=== PATIENT | female | born 1980 | race Caucasian/White ===

== ENCOUNTER 2017-07-23 15:27 | Emergency (ER) | payer MEDICARE, OTHER ==
[~2017-07-23] VITALS: Ht 157.5 cm; Wt 88.5 kg
[~2017-07-23 15:27] MED LIST: LISI5TAB18 PO
[2017-07-23 15:40] VITALS: BP 117/54
--- NOTE | 2017-07-23 15:46 | NUR ---
PT TO RM 8. GAVE REPORT TO MARTHA CARDOZO.
--- NOTE | 2017-07-23 15:53 | NUR ---
PT. CAME INTO THE ED W C/O LARSON X 2 WEEKS THAT HAS BEEN GETTING WORSE. PT. IS AAOX4, PT. DENIES ANY CHEST PAIN OR SOB. PT. STATES " I HAVE HAD THIS HEADACHE FOR 2 WEEKS AND ITS NON STOP I HAVE TAKEN MANY OTC MEDICATIONS AND IT DOESNT GET BETTER ITS GETTING WORSE". PT.DENIES FALL, PT. COMPLAINS OF N/V/ AND DIAHRRHEA X 2 DAYS AGO. PT. HAS EQUAL ROUND AND REACTIVE PUPILS TO LIGHT BILATERALLY 3MM BRISK , ABLE TO FOLLOW COMMANDS AND BILATERAL 3+ HAND STRENGTH. PT STATES " I HAVE NEVER HAD A LARSON LIKE THIS. ER MD NOTIFIED. PROVIDED URINE SAMPLE. WILL CONTINUE TO MONITOR.
--- NOTE | 2017-07-23 15:56 | NUR ---
Bernard figueroa in ED - 07/23/17 at 1601 by MARK PT TO RM 8. GAVE REPORT TO MARTHA BURROUGHS
[2017-07-23] MEDS ORDERED: NACL 0.9% 1,000 ML IV ONE (16:26)
[2017-07-23] MEDS ORDERED: PROCHLORPERAZINE 10 MG/2 ML VIAL IVP ONE (16:30)
[2017-07-23] MEDS ORDERED: diphenhydrAMINE 50 MG/ML VIAL IVP ONE (16:30)
[2017-07-23] MEDS ORDERED: KETOROLAC 30 MG/ML VIAL IVP ONE (17:00)
--- NOTE | 2017-07-23 17:00 | NUR ---
PT. RESTING COMFORTABLY IN BED, RR EVEN AND UNLABORED, BED IN LOWEST POSITION, COMPALINS OF 8/10 PAIN , ER MD NOTIFIED . WILL CONTINUE TO MONITOR.
[2017-07-23 17:30] VITALS: BP 120/57
--- NOTE | 2017-07-23 17:30 | NUR ---
Patient discharged with v/s stable. Written and verbal after care instructions given and explained. Patient alert, oriented and verbalized understanding of instructions. Ambulatory with steady gait. All questions addressed prior to discharge. ID band removed. Patient advised to follow up with PMD. Rx of CIPRO, MOTRIN, AND NORCO 5-325 given. Patient educated on indication of medication including possible reaction and side effects. Opportunity to ask questions provided and answered.
== END 2017-07-23 17:30 | disposition home or self-care (01) ==
LOC: MED 15:27
DX: N39.0 Urinary tract infection, site not specified (principal); R51 Headache; J45.909 Unspecified asthma, uncomplicated; I50.9 Heart failure, unspecified; G43.909 Migraine, unspecified, not intractable, without status migrainosus; Z79.899 Other long term (current) drug therapy
CPT/HCPCS: 81002; 81025; 96361; 96374; 96375; 99284; J0780; J1200; J1885; J7030

== ENCOUNTER 2017-07-30 11:25 | Emergency (ER) | payer OTHER ==
[~2017-07-30] VITALS: Ht 157.5 cm; Wt 90.3 kg
[2017-07-30 11:35] VITALS: BP 121/78
[2017-07-30] MEDS ORDERED: ALBU0.0912 IH (11:42)
[2017-07-30] MEDS ORDERED: MORPHINE SULFATE 4 MG/ML SYR IM ONE (12:20)
[2017-07-30] MEDS ORDERED: ONDANSETRON 4 MG ODT PO ONE (12:20)
[2017-07-30] MEDS ORDERED: METHOCARBAMOL 500 MG TAB PO ONE (15:10)
[2017-07-30] MEDS ORDERED: KETOROLAC 60 MG/2 ML VIAL IM ONE (15:10)
[2017-07-30 16:07] VITALS: BP 102/60
== END 2017-07-30 16:07 | disposition home or self-care (01) ==
LOC: MED 11:25
DX: S09.90XA Unspecified injury of head, initial encounter (principal); M54.2 Cervicalgia; M54.6 Pain in thoracic spine; J45.909 Unspecified asthma, uncomplicated; F12.10 Cannabis abuse, uncomplicated; V43.52XA Car driver injured in collision with other type car in traffic accident, initial encounter; Y93.89 Activity, other specified; Y99.8 Other external cause status; Y92.410 Unspecified street and highway as the place of occurrence of the external cause
CPT/HCPCS: 70450; 71045; 72072; 72125; 81025; 96372; 99284; J1885; J2270; S0119

== ENCOUNTER 2018-10-17 22:07 | Emergency (ER) | payer OTHER ==
[~2018-10-17] VITALS: Ht 157.5 cm; Wt 90.7 kg
[~2018-10-17 22:07] MED LIST changes: +ALBU0.0912 IH; -LISI5TAB18 PO
[2018-10-17 22:16] VITALS: BP 114/58
--- NOTE | 2018-10-17 22:17 | NUR ---
TRIAGE COMPLETE. VAA. OKAY TO WAIT IN LOBBY FOR BED IN ED.
--- NOTE | 2018-10-17 23:39 | NUR ---
PATIENT AMBULATED TO BED 8
--- NOTE | 2018-10-17 23:52 | NUR ---
38 Y/O FEMALE C/O CONGESTION, COUGH, BODY ACHES SINCE Saturday10/14/18. PATIENT STATES THAT SHE COUGHS OUT GREEN PHLEGM. SHE HAS N/V/D AND PAIN IS 9/10 WHEN SHE COUGHS. PAIN RADIATES TO NECK AND BACK. LUNG SOUNDS EXHIBIT SLIGHT WHEEZES IN THE BASES. RR IS 17. ERMD AWARE OF STATUS. BROTHER IS AT BEDSIDE. SIDE RAILSX1. PMH:ASTHMA, CHF RX:ASTHMA MEDICATION NKDA
--- NOTE | 2018-10-18 00:16 | NUR ---
COVERING PRIMARY RN FOR LUNCH RELIEF.
[2018-10-18] MEDS ORDERED: KETOROLAC 60 MG/2 ML VIAL IM ONE (01:50)
[2018-10-18] MEDS ORDERED: ONDANSETRON 4 MG ODT PO ONE (01:50)
[2018-10-18 02:17] VITALS: BP 114/58
--- NOTE | 2018-10-18 02:17 | NUR ---
Patient discharged with v/s stable. Written and verbal after care instructions given and explained. Patient alert, oriented and verbalized understanding of instructions. Ambulatory with steady gait. All questions addressed prior to discharge. ID band removed. Patient advised to follow up with PMD. Rx of MOTRIN; PREDNISONE;CIPRO; ZOFRAN given. Patient educated on indication of medication including possible reaction and side effects. Opportunity to ask questions provided and answered.
== END 2018-10-18 02:17 | disposition home or self-care (01) ==
LOC: MED 22:07
DX: N39.0 Urinary tract infection, site not specified (principal); J45.909 Unspecified asthma, uncomplicated; I50.9 Heart failure, unspecified; Z98.890 Other specified postprocedural states; Z79.899 Other long term (current) drug therapy
CPT/HCPCS: 71046; 81002; 81025; 96372; 99283; J1885; Q0162